=== PATIENT | male | born 1980 | race Caucasian/White ===

== ENCOUNTER 2017-05-24 02:00 | Inpatient (IN) ==
[2017-05-24] MEDS ORDERED: MORPHINE 2 MG/1 ML SYRINGE IV STA (03:12)
[2017-05-24] MEDS ORDERED: MIDAZOLAM 10 MG/2 ML VIAL IV STA (03:12)
[2017-05-24] MEDS ORDERED: SODIUM CHLORIDE 0.9% 1,000 ML IV STA (03:17)
[2017-05-24 04:03] LABS: Basophils # 0.1 10*3/uL (0.0-0.2); Basophils % 1.3 % (0.0-0.8); Eosinophils # 0.3 10*3/uL (0.0-0.87); Eosinophils % 2.7 % (0.00-10.9); Hematocrit 42.7 VOL% (42.0-52.0); Hemoglobin 15.2 GM/DL (14.0-18.0); Immature Granulocytes % 0.3 %; Immature Granulocytes Absolute 0.03 #; Lymphocytes # 2.9 10*3/uL (1.4-4.0); Lymphocytes % 30.9 % (21.2-54.2); Mean Corpuscular HGB Conc 35.6 GM/DL (32-36); Mean Corpuscular Hemoglobin 35 PG (27-34); Mean Corpuscular Volume 97.5 FL (87-102); Mean Platelet Volume 10.2 FL (9.6-12.0); Monocytes # 0.6 10*3/uL (0.11-0.8); Monocytes % 6.1 % (1.7-12.7); Neutrophils # 5.5 10*3/uL (1.4-7.4); Neutrophils % 58.7 % (38.7-73.9); Platelet Count 255 T/CUMM (130-400); Red Blood Count 4.38 MC/CUMM (3.8-5.5); Red Cell Distribution Width 12.4 % (9.3-17.3); White Blood Count 9.3 T/CUMM (4-12)
[2017-05-24] MEDS ORDERED: MORPHINE 2 MG/1 ML SYRINGE ONE (04:09)
[2017-05-24] MEDS ORDERED: MIDAZOLAM 10 MG/2 ML VIAL ONE (04:09)
[2017-05-24] MEDS: DEXTROSE 5% NACL 0.45% 1,000 ML IV SCH ×3 (04:26→18:38)
[2017-05-24 04:28] LABS: Bilirubin,Total 0.6 MG/DL (0.2-1.0); Calcium 8.4 MG/DL (8.5-10.1); Osmolality,Calculated 280.3 MOS/KG (273-304); Potassium 3.6 MMOL/L (3.5-5.1); Total Protein 7.6 G/DL (6.4-8.3)
--- NOTE | 2017-05-24 04:43 | Emergency Department Note ---
Arrival - Arrival Chief Complaint: Extremity Injury Stated Complaint: Broken ankle ED Nursing Triage Note: Patient to ED with c/o being outside chasing his dog when he slipped, hit right ankle on tree stump and falling. Patient arrives to ED 1 hour after injury occured and has obvious edema and deformity to right ankle. Patient unable to bear weight, able to move digits, and has good pulses and cap refill. Mode of Arrival: Wheelchair Time Seen by Provider: 05/24/17 02:32 - History of Present Illness HPI Narrative: This is an otherwise healthy 36-year-old white male who was outside chasing his dog when he slipped and hit his right ankle on a tree stump and fell. When he arrived he had an obvious deformity of the right ankle which on x-ray showed a trimalleolar fracture with dislocation. Allergies/Adverse Reactions: Allergies Allergy/AdvReac Type Severity Reaction Status Date / Time No Known Allergies Allergy Unverified 05/24/17 02:10 Home Medications: Home Medications Medication Instructions Recorded Confirmed Type No Known Home Medications [No 05/24/17 05/24/17 History Known Home Medications] Review of System - Review of System Constitutional: Absent: fever, night sweats Eyes: Absent: redness, vision change Head/Ears/Nose/Throat: Absent: epistaxis, nasal drainage Respiratory: Absent: respiratory distress, wheezing Cardiovascular: Absent: dyspnea on exertion, orthopnea Gastrointestinal: Absent: nausea, vomiting, diarrhea Genitourinary male: Absent: urgency, dysuria Musculoskeletal: Present: joint swelling, leg pain Skin: Absent: change in color, change in hair/nails Neurological: Absent: numbness, paresthesias, confusion Psychiatric: Absent: anxiety, depression Endocrine: Absent: heat intolerance, polydipsia, polyuria Hematological/Lymphatic: Absent: easy bruising, lymphadenopathy Allergic/Immunologic: Absent: urticaria, itchy eyes Medical,Surgical,& Family Hx - Social History Smoking Status: Current every day smoker Frequency of Alcohol Use: None Type of Drug Use: None Exam Vital Signs: Vital Signs Temperature 96.3 F L 05/24/17 02:05 Pulse Rate 88 05/24/17 02:05 Respiratory Rate 22 05/24/17 02:05 Blood Pressure 134/81 05/24/17 02:05 O2 Sat by Pulse Oximetry 97 05/24/17 02:05 - General General appearance: alert - Eye Eye exam: Present: PERRL, EOMI - ENT ENT exam: Present: normal exam - Neck Neck exam: Present: normal inspection, full ROM - Chest Chest inspection: Present: normal inspection - Respiratory Respiratory exam: Present: normal lung sounds bilaterally - Cardiovascular Cardiovascular exam: Present: regular rate, normal rhythm - Abdominal Exam Abdominal exam: Present: soft, normal bowel sounds - Extremities Exam Extremities exam: Present: other (Obvious deformity and swelling of the right ankle which is rotated laterally 15 and angulated laterally 15.) - Back Exam Back exam: Present: normal inspection, full ROM - Neurological Exam Neurological exam: Present: alert, oriented X3 - Psychiatric Psychiatric exam: Present: normal affect, normal mood - Skin Skin exam: Present: warm, dry Course Course Narrative: Procedural sedation: Using 4 mg of morphine and 7-1/2 mg of Versed 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 Repeat x-rays showed adequate alignment. Post procedure capillary refill was less than 2 seconds. The patient tolerated the procedure well. The case was discussed with Dr. Plaza who instructed that the patient should be admitted to the hospital n.p.o. Results - Labs CBC & BMP: 05/24/17 03:47 05/24/17 03:47 Disposition Clinical Impression: Trimalleolar fracture of right ankle Additional Instructions: The case was discussed with Dr. Plaza who recommended the patient be admitted to his service and be placed in a posterior and stirrup splint after reduction
[2017-05-24] MEDS ORDERED: MAGNESIUM HYDROXIDE SUSP 30 ML UDCUP PO PRN (04:48)
[2017-05-24] MEDS ORDERED: MIDAZOLAM 2 MG/2 ML VIAL IV STA (06:14)
[2017-05-24] MEDS ORDERED: ceFAZolin 2,000 MG in PREMIX 1 EACH IV ONE (06:47)
[2017-05-24] MEDS ORDERED: BACITRACIN OINT 0.9 GM PACK TOP ONE ×2 (06:51→11:40)
--- NOTE | 2017-05-24 07:36 | Orthopedic History & Physical ---
Assessment and Plan - Time spent with patient Time spent discussing smoking cessation with patient: 3 to 10 minutes (1) Trimalleolar fracture of right ankle Status: Acute Current Visit: Yes Qualifiers: Encounter type: initial encounter Fracture type: closed Qualified Code(s) : S82.851A - Displaced trimalleolar fracture of right lower leg, initial encounter for closed fracture History of Present Illness Chief complaint: Right ankle fracture dislocation History of present illness: Mr. Echols is a 36 year old male who tripped over a stump last night just after midnight. Patient was attempting to save his daughter's cat from a dog. He has not had any previous history of problems with his ankle. 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 He denies any numbness or tingling. He underwent a closed reduction and [facility]. Patient drank a about 4 ounces of water. Past medical history is negative. Past surgical history is negative. No routine medications. No known drug allergies. One drink per day alcohol. 1.5 packs per day smoker. 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 Review of systems otherwise negative. Alert and oriented Lungs clear to auscultation Heart regular rate and rhythm Spine, bilateral upper extremities and left lower extremity are without deformity and are nontender. Exam right lower extremity shows that his limb is splinted. He can flex extend his toes. Sensations intact his first first webspace, plantar and dorsal aspects of his foot. Is a 2+ dorsalis pedis pulse. Capillary refills less than 2 seconds. Patient has mild prepatellar effusion. Radiographs knee 2 view shows a bipartite patella. X-rays ankle injury and postreduction show a displaced trimalleolar fracture. Impression right ankle trimalleolar fracture dislocation Plan: I advised open reduction fixation. Risks and benefits and rationale for the procedure were discussed. I have encouraged smoking and and nicotine cessation. All questions were answered. Risks include but not limited to infection, bleeding, anesthesia, topical ointment, loss of limb, loss of life heart attack stroke, delayed healing, etc. Home Medications Medication Instructions Recorded Confirmed Type No Known Home Medications [No 05/24/17 05/24/17 History Known Home Medications] Allergies Allergy/AdvReac Type Severity Reaction Status Date / Time No Known Allergies Allergy Unverified 05/24/17 02:10 12 point system: reviewed and no additional remarkable complaints except as stated Medical,Surgical,& Family Hx - Social History Smoking Status: Current every day smoker Frequency of Alcohol Use: None Type of Drug Use: None Exam - Constitutional Vitals: Period Temp Pulse Resp BP Sys/Pascal Pulse Ox Last 24 Hr 96.3 F-96.3 F 88-88 22-22 134-134/81-81 97-100 Results - Labs CBC & BMP: 05/24/17 03:47 05/24/17 03:47
--- NOTE | 2017-05-24 08:11 | XRay Report ---
XR ankle 3V RT Clinical Information: possible broken ankle Comparison: None available Findings: There were acute mildly comminuted fractures of the distal tibia/fibula with overlying soft tissue swelling. No dislocation and mild medial subluxation at the tibiotalar joint is also noted. Impression: Acute comminuted and mildly displaced fractures of the distal tibia/fibula with overlying soft tissue swelling. PROCEDURE INTERPRETED AT [facility] DEPARTMENT OF RADIOLOGY Final Report Signed by: Blaise Kern
--- NOTE | 2017-05-24 08:13 | XRay Report ---
Exam: XR knee 2V RT Date: 05/24/2017 3:14 AM Comparison: None Indication: Knee pain Technique:[AP and lateral right knee] Findings: Soft tissue swelling with bipartite patella. No acute fracture or dislocation. Impression: Soft tissue swelling. Bipartite patella. No fracture or dislocation. PROCEDURE INTERPRETED AT [facility] DEPARTMENT OF RADIOLOGY Final Report Signed by: Dr. Janelle Luna
--- NOTE | 2017-05-24 08:13 | XRay Report ---
XR ankle 2V RT Clinical Information: post reduction Distal ankle fracture Comparison: Prior ankle radiograph 05/24/2017 at 0253 hours Findings: Since prior study, external cast material has been placed at the ankle. There is significant improvement in the position/alignment of the known distal tibia/fibular fractures. No additional fractures are identified.. Impression: Interval external reduction of the distal tibia/fibular fractures with external cast material. PROCEDURE INTERPRETED AT [facility] DEPARTMENT OF RADIOLOGY Final Report Signed by: Blaise Kern
[2017-05-24] MEDS ORDERED: ONDANSETRON 4 MG/2 ML VIAL ONE ×2 (11:10→13:16)
[2017-05-24] MEDS ORDERED: LIDOCAINE 2% 5 ML VIAL ONE (11:10)
[2017-05-24] MEDS ORDERED: KETOROLAC 30 MG/1 ML VIAL ONE (11:10)
[2017-05-24] MEDS ORDERED: PROPOFOL 200 MG/20 ML VIAL IV ONE (11:10)
[2017-05-24] MEDS ORDERED: DEXAMETHASONE 10 MG/1 ML VIAL ONE (11:10)
--- NOTE | 2017-05-24 12:43 | XRay Report ---
Power XR ankle 3V RT Clinical Information: ORIF RT ANKLE Comparison: Prior radiographs Findings: Intraoperative fluoroscopy demonstrates plate and screw hardware at the distal tibia and fibula. Fracture fragments are in near anatomic alignment. Overlying soft tissue swelling is noted. Total fluoroscopy time [address] Plaza Impression: Intraoperative fluoroscopy as detailed above. PROCEDURE INTERPRETED AT [facility] DEPARTMENT OF RADIOLOGY Final Report Signed by: Blaise Kern
--- NOTE | 2017-05-24 12:50 | Operative Note ---
Date of procedure: 05/24/17 Procedure: DIAGNOSIS: Right displaced trimalleolar fracture PROCEDURE: Right trimalleolar open reduction and fixation without fixation posterior lip (CPT#39300) SURGEON: Bola ANESTHESIA: General PROCEDURE and FINDINGS: After adequate anesthesia was induced, the limb was prepped and draped in the usual sterile fashion. Limb was exsanguinated with Esmarch. Tourniquet was inflated to 300 mmHg. A lateral approach to the distal fibula was made. Skin, subcutaneous tissue, and periosteum was incised longitudinally. Fracture was exposed and reduced. A lag screw was placed from anterior to posterior followed by a contour 7 hole buttress plate. The medial malleolus was exposed through a medial incision. Neurovascular structures were protected. Fracture was identified and reduced. Medial malleolus was secured with pins and then followed with 4.0 mm cannulated partially threaded screws. Wounds were irrigated. Periosteum was approximated with 0 Vicryl figure-of- eight sutures. Subcutaneous tissues were closed with 3-0 Vicryl interrupted, buried sutures. Skin was approximated with lisa. Sterile dressing and short leg splint was applied. Tourniquet was released for an approximate time of 58 minutes. Image intensification was used throughout the procedure. Surgeon / Physician: Abdoul Plaza Jr. Results - Labs CBC & BMP: 05/24/17 03:47 05/24/17 03:47 Discharge Plan - Discharge Medications No Action No Known Home Medications [No Known Home Medications] - Follow Up or Referral - Forms/Instructions
[2017-05-24] MEDS ORDERED: ONDANSETRON 4 MG/2 ML VIAL IV PRN ×2 (12:52→13:27)
[2017-05-24] MEDS ORDERED: MORPHINE 2 MG/1 ML SYRINGE IV PRN ×2 (12:52)
[2017-05-24] MEDS ORDERED: KETOROLAC 30 MG/1 ML VIAL IV PRN (12:52)
--- NOTE | 2017-05-24 13:00 | Discharge Summary ---
Hospital Course - Hospital Course Hospital Course: Sky Echols sustained a right bimalleolar ankle fracture dislocation. He underwent a closed reduction and splinting in the emergency room. He was admitted for definitive treatment. He underwent an uncomplicated open reduction fixation of his right ankle. He received perioperative DVT and antimicrobial prophylaxis. Strongly encouraged to stop nicotine usage. The patient was discharged home after physical therapy. Diagnosis - Discharge Diagnosis (1) Trimalleolar fracture of right ankle Status: Acute Discharge Plan - Discharge Data Disposition: Disch To Home/Self Care Discharge Diet: advance to your usual diet Hygiene: keep area(s) dry Weight Bearing at Discharge: non-weight bearing - Discharge Medications No Action No Known Home Medications [No Known Home Medications] - Follow Up or Referral - Forms/Instructions Additional Discharge Instructions: Follow-up appointment in 10-14 days. Keep splint clean, dry and intact. Elevate 6 inches over heart level. Strict nonweightbearing right lower extremity. Arrange for crutches or walker for home use. Prescription for [place] 7.5 with 25 tablets was written. Exam - Constitutional Vitals: Period Temp Pulse Resp BP Sys/Pascal Pulse Ox Last 24 Hr 96.3 F-99.3 F 88-97 18-22 134-163/81-101 96-100 Discharge Results Labs on day of discharge: Labs from last 24 hours 05/24/17 05/24/17 05/24/17 05:27 03:47 03:47 WBC 9.3 RBC 4.38 Hgb 15.2 Hct 42.7 MCV 97.5 MCH 35 H MCHC 35.6 RDW 12.4 Plt Count 255 MPV 10.2 Neut % (Auto) 58.7 Lymph % (Auto) 30.9 Tate % (Auto) 6.1 Eos % (Auto) 2.7 Baso % (Auto) 1.3 H Neut # (Auto) 5.5 Lymph # (Auto) 2.9 Tate # (Auto) 0.6 Eos # (Auto) 0.3 Baso # (Auto) 0.1 Immature Gran % 0.3 Nucleated RBC % 0.0 Immature Gran # 0.03 Nucleated RBCs # 0.00 Immature Plt Fraction 0.0 Sodium 141 Potassium 3.6 Chloride 106 Carbon Dioxide 23 Anion Gap 15.6 H BUN 7 Creatinine 0.70 GFR Calculation 163 BUN/Creatinine Ratio 10.00 Glucose 127 H Calculated Osmolality 280.3 Calcium 8.4 L Total Bilirubin 0.60 AST 75 H ALT 119 H Alkaline Phosphatase 55 Total Protein 7.6 Albumin 4.0 Globulin 3.6 H Albumin/Globulin Ratio 1.1 Blood Type A POSITIVE Antibody Screen Negative DS: Provider Date of admission: 05/24/17 04:48 Primary care physician: . No PCP Attending physician on admission: Abdoul Plaza Jr., Consults: 05/24/17 04:48 Consult to Anesthesiology [CONS] Routine Consulting Provider: Reason for Anesthesiology: Pre-op Clearance 05/24/17 08:22 Consult to Case Mgmt/Social Srvs [CONS] Routine Reason for Case Mgmt/Social Srvs: Discharge Planning 05/24/17 12:51 Consult to Physical Therapy [CONS] Routine Reason for Physical Therapy: Evaluate and Treat Start Therapy: Today Consult Comment: lav[facility] garrison Discharging clinician: Abdoul Plaza Jr., Expected date of discharge: 05/24/17
--- NOTE | 2017-05-24 13:05 | Anesthesia Post-Op ---
Anesthesia Post OP - Post Ansesthetic Evaluation Patient seen in post op: Yes Resp: within normal limits CV: within normal limits Mental: within normal limits Temp: within normal limits [id number]: within normal limits Nausea and Vomiting: within normal limits Pain: within normal limits
[2017-05-24] MEDS ORDERED: SEVOFLURANE 1 UNIT/15 MINUTE INH ONE (13:11)
[2017-05-24] MEDS ORDERED: MIDAZOLAM 2 MG/2 ML VIAL ONE (13:11)
[2017-05-24] MEDS ORDERED: fentaNYL 100 MCG/2 ML VIAL ONE ×2 (13:11)
[2017-05-24] MEDS ORDERED: LACTATED RINGERS 1,000 ML IV ONE (13:12)
[2017-05-24] MEDS ORDERED: ROPIVACAINE 0.5% 30 ML VIAL ONE (13:12)
[2017-05-24] MEDS ORDERED: ACETAMINOPHEN 1,000 MG/100 ML VIAL IV ONE (13:12)
[2017-05-24] MEDS ORDERED: HYDROmorphone 2 MG/1 ML VIAL ONE (13:16)
[2017-05-24] MEDS: HYDROmorphone 2 MG/1 ML VIAL IV PRN ×2 (13:20→13:25)
[2017-05-24] MEDS: ceFAZolin 2,000 MG in PREMIX 1 EACH IV SCH (19:52)
[2017-05-25] MEDS: ceFAZolin 2,000 MG in PREMIX 1 EACH IV SCH (03:30)
[2017-05-25 11:48] VITALS: BP 143/75
--- NOTE | 2017-05-25 12:55 | Orthopedic Progress Note ---
Orthopedics - Subjective Interval history: 2019 vss af NVI Splint in dC home patient is alert and oriented his vital signs are stable he is afebrile his splint is in good condition he is neurovascularly intact discharge orders have already been written a Dr. Plaza discharge home strict nonweightbearing thank you Exam - Constitutional Vitals: Period Temp Pulse Resp BP Sys/Pascal Pulse Ox Last 24 Hr 96.9 F-99.6 F 70-109 12-20 109-158/64-99 90-99 Results - Labs CBC & BMP: 05/24/17 03:47 05/24/17 03:47 Quality Measures - VTE Contraindication to Pharmacological VTE Prophylaxis: High Risk of Bleeding
== END 2017-05-25 13:55 | disposition home or self-care (01) | DRG 494 ==
LOC: N.ED 02:00 → N.3E 04:48
PROVIDERS: ADMIT Orthopaedic Surgery; ATTEND Orthopaedic Surgery